=== PATIENT | male | born 1985 | race Caucasian/White ===

== ENCOUNTER 2024-08-10 23:19 | Emergency (ER) | payer SELFPAY ==
[~2024-08-10] VITALS: Ht 188 cm; Wt 137.0 kg
[2024-08-10] MEDS: DIPHENHYDRAMINE 50MG/ML VIAL IM STA (23:47)
[2024-08-10] MEDS: HALOPERIDOL LACTATE 5MG/ML VIAL IM STA (23:47)
[2024-08-10] MEDS: LORAZEPAM 2MG/ML INJ IM STA (23:47)
[2024-08-11] MEDS: HALOPERIDOL LACTATE 5MG/ML VIAL IM ONE (00:27)
[2024-08-11] MEDS: LORAZEPAM 2MG/ML INJ IM ONE ×2 (00:27→06:45)
[2024-08-11 01:40] LABS: BASOPHILS % 0.3 % (0.0-2.0); EOSINOPHILS % 0.4 % (0.0-5.0); HEMATOCRIT. 41.9 % (42.0-52.0); HEMOGLOBIN. 14.1 g/dL (14.0-18.0); LYMPHOCYTES % 17.8 % (20.0-50.0); MEAN CORPUSCULAR HGB CONC 33.5 g/dL (31.0-37.0); MEAN CORPUSCULAR VOLUME 86.5 fL (80.0-94.0); MEAN PLATELET VOLUME 8.5 fl (7.4-10.4); MONOCYTES % 10.5 % (2.0-8.0); PLATELET 257 x1000/uL (130-400); RED BLOOD CELL COUNT 4.85 mill/uL (4.7-6.1); RED CELL DISTRIBUTION WIDTH 13.8 % (11.6-14.6); WHITE BLOOD COUNT 8.7 x1000/uL (4.5-11.0)
[2024-08-11 01:51] LABS: CHLORIDE 107 mEq/L (98-107); POTASSIUM 3.6 mEq/L (3.5-5.1); SODIUM 141 mEq/L (136-145)
[2024-08-11 01:52] LABS: CALCIUM 9.2 mg/dL (8.7-10.4); CARBON DIOXIDE 25 mEq/L (21-32)
[2024-08-11 01:57] LABS: GLUCOSE 110 mg/dL (70-105); UREA NITROGEN BLOOD 12 mg/dL (9-23)
[2024-08-11 01:59] LABS: ACETAMINOPHEN < 2 ug/mL (10-30); ALANINE AMINOTRANSFERASE 42 IU/L (10-49); ALBUMIN 4.4 g/dL (3.2-4.8); ASPARTATE AMINOTRANSFERASE 42 IU/L (<34); BILIRUBIN DIRECT 0.6 mg/dL (<=3.0); BILIRUBIN TOTAL 2.2 mg/dL (0.1-1.0); PROTEIN TOTAL 7.2 g/dL (6.0-8.3)
[2024-08-11 02:03] LABS: ETHANOL BLOOD < 10 mg/dL (<10)
[2024-08-11 02:45] LABS: CLARITY URINE CLEAR (CLEAR); COLOR URINE YELLOW (YELLOW); GLUCOSE URINE NEGATIVE (NEGATIVE); KETONES URINE TRACE (NEGATIVE); LEUKOCYTE ESTERASE URINE NEGATIVE (NEGATIVE); NITRITE URINE NEGATIVE (NEGATIVE); OCCULT BLOOD URINE NEGATIVE (NEGATIVE); PH URINE 6.5 (4.5-8.0); PROTEIN URINE NEGATIVE (NEGATIVE); SPECIFIC GRAVITY URINE 1.019 (1.005-1.030)
[2024-08-11 02:49] LABS: *AMPHETAMINES SCREEN URINE NEGATIVE (NEGATIVE); *BARBITURATES SCREEN URINE NEGATIVE (NEGATIVE); *BENZODIAZEPINES SCREEN URINE NEGATIVE (NEGATIVE); *COCAINE SCREEN URINE NEGATIVE (NEGATIVE); CANNABINOID URINE SCREEN NEGATIVE (NEGATIVE); ECSTASY MDMA SCREEN URINE NEGATIVE (NEGATIVE); METHADONE URINE SCREEN NEGATIVE (NEGATIVE); OPIATES URINE SCREEN NEGATIVE (NEGATIVE); PHENCYCLIDINE URINE SCREEN NEGATIVE (NEGATIVE)
[2024-08-11] MEDS: OLANZAPINE 10 MG/VIAL IM ONE (08:00)
[2024-08-12] MEDS ORDERED: LORAZEPAM 2MG/ML INJ IM ONE (01:45)
[2024-08-12] MEDS ORDERED: HALOPERIDOL LACTATE 5MG/ML VIAL IM ONE (01:45)
[2024-08-12] MEDS: HALOPERIDOL LACTATE 5MG/ML VIAL IM NR (05:31)
[2024-08-12] MEDS: LORAZEPAM 2MG/ML INJ IM NR (05:31)
[2024-08-12 06:41] VITALS: TEMP 36.61404; O2SAT 97
[2024-08-12 07:00] VITALS: BP 140/85; PULSE 82; RESP 16; TEMP 98.1; O2SAT 98
== END 2024-08-12 10:20 | disposition home or self-care (01) ==
LOC: ER 08-11 00:41
DX: R45.850 Homicidal ideations (principal); R45.1 Restlessness and agitation; F19.90 Other psychoactive substance use, unspecified, uncomplicated; Z20.822 Contact with and (suspected) exposure to COVID-19
CPT/HCPCS: 80076; 80305; 80048; 81003; 80307; 80329; 80320; 85025; 36415; 96372 ×2; 99291; 87426; J1200; J1630 ×3; J2060 ×3; Z7610 ×4; G0480